=== PATIENT | male | born 1990 | race Two or more races ===

== ENCOUNTER 2018-03-17 20:05 | Emergency (ER) | payer OTHER ==
[~2018-03-17] VITALS: Ht 172.7 cm; Wt 72.6 kg
[2018-03-17 20:10] VITALS: BP 141/73
[2018-03-17] MEDS ORDERED: GUAIFENESIN/D-METHORPHAN HB 5 ML UDC ONE (20:28)
[2018-03-17] MEDS ORDERED: GUAIFENESIN/D-METHORPHAN HB 5 ML UDC PO ONE (20:30)
== END 2018-03-17 21:07 | disposition home or self-care (01) ==
LOC: ER 20:07
DX: J18.8 Other pneumonia, unspecified organism (principal); R94.31 Abnormal electrocardiogram [ECG] [EKG]
CPT/HCPCS: 71045; 93005; 99284; A4606; Z7610

== ENCOUNTER 2019-11-14 14:47 | Emergency (ER) | payer MEDICAID, OTHER ==
[~2019-11-14] VITALS: Ht 172.7 cm; Wt 70.8 kg
[2019-11-14 15:15] VITALS: BP 156/77
[2019-11-14] MEDS ORDERED: IBUPROFEN 400 MG TABLET ONE (15:42)
[2019-11-14] MEDS ORDERED: IBUPROFEN 400 MG TABLET PO ONE (16:00)
== END 2019-11-14 16:45 | disposition home or self-care (01) ==
LOC: ER 14:49
DX: S60.111A Contusion of right thumb with damage to nail, initial encounter (principal); W23.0XXA Caught, crushed, jammed, or pinched between moving objects, initial encounter; Y93.89 Activity, other specified; Y92.89 Other specified places as the place of occurrence of the external cause; Y99.8 Other external cause status
CPT/HCPCS: 11740; 73140; 99285; A6403

== ENCOUNTER 2020-09-09 11:18 | Emergency (ER) | payer MEDICAID, OTHER ==
[~2020-09-09] VITALS: Ht 172.7 cm; Wt 77.1 kg
[2020-09-09 11:24] VITALS: BP 150/95
--- NOTE | 2020-09-09 11:35 | NUR ---
Patient discharged to home in stable condition. Written and verbal after care instructions given. Patient verbalizes understanding of instruction.
== END 2020-09-09 11:35 | disposition home or self-care (01) ==
LOC: ER 11:19
DX: N48.1 Balanitis (principal)

== ENCOUNTER 2021-05-31 11:51 | Emergency (ER) | payer OTHER ==
[~2021-05-31] VITALS: Ht 172.7 cm; Wt 77.1 kg
--- NOTE | 2021-05-31 11:51 | NUR ---
PT BIBRA 89 FROM HOME LSIDED ABDOMINAL PAIN W/ NOTED BLOODY DIARRHEA SINCE YESTERDAY. PT IS AAOX4, NOT IN RESPIRATORY DISTRESS, HOOKED TO PROGRAMMER BUSINESS, KEPT RESTED AND COMFORTABLE. WILL CONTINUE TO MONITOR.
--- NOTE | 2021-05-31 11:56 | NUR ---
SEEN AND EXAMINED BY .
--- NOTE | 2021-05-31 12:00 | NUR ---
IV LINE ESTABLISHED BLOOD DRAWN AND SENT TO LAB.
[2021-05-31 13:05] LABS: BASOPHILS % (AUTO) 0.2 % (0.0-2.0); EOSINOPHILS % (AUTO) 0.2 % (0.0-6.0); HEMATOCRIT 47 % (39-51); HEMOGLOBIN 15.9 g/dL (13.5-17.5); LYMPHOCYTES # (AUTO) 1.3 K/uL (0.8-4.8); LYMPHOCYTES % (AUTO) 29.9 % (20.0-44.0); MEAN CORPUSCULAR HGB CONC 34 g/dl (31.0-36.0); MEAN CORPUSCULAR VOLUME 89 fL (80-96); MONOCYTES # (AUTO) 0.8 K/uL (0.1-1.30); MONOCYTES % (AUTO) 18.4 % (2.0-12.0); NEUTROPHILS # (AUTO) 2.3 K/uL (1.8-8.9); NEUTROPHILS % (AUTO) 51.3 % (43.0-81.0); PLATELET COUNT (AUTO) 163 K/uL (150-450); RED BLOOD CELL COUNT(AUTO) 5.27 MIL/uL (4.5-6.0); WHITE BLOOD COUNT (AUTO) 4.5 K/uL (4.3-11.0)
--- NOTE | 2021-05-31 13:18 | NUR ---
PT IS WHEELED TO CT SCAN VIA WHEELCHAIR.
[2021-05-31 13:27] LABS: ALBUMIN 4.1 g/dL (3.4-5.0); BILIRUBIN,DIRECT 0.1 mg/dL (0.0-0.2); BILIRUBIN,TOTAL 0.4 mg/dL (0.2-1.0); CALCIUM, SERUM 8.7 mg/dL (8.5-10.1); POTASSIUM 3.5 mmol/L (3.5-5.1); TOTAL PROTEIN, SERUM 8.5 g/dL (6.4-8.2)
[2021-05-31] MEDS ORDERED: IOHEXOL-300 100 ML VIAL IV ONE (13:41)
[2021-05-31] MEDS ORDERED: CT SWABBABLE VALVE TRANS SET 1 EA INFUS.SET MC ONE (13:41)
[2021-05-31] MEDS ORDERED: IV NS 0.9% 250 ML IV ONE (13:42)
[2021-05-31] MEDS ORDERED: ONDANSETRON HCL/PF 4 MG/2 ML VIAL ONE (13:47)
[2021-05-31 15:25] VITALS: BP 125/74
--- NOTE | 2021-05-31 15:25 | NUR ---
IV removed. Catheter intact and site benign. Pressure and 4x4 applied to site. No bleeding noted. Patient discharged to home in stable condition. Written and verbal after care instructions given. Patient verbalizes understanding of instruction.
[2021-05-31 15:29] LABS: BAND % (MANUAL) 1 % (0.0-5.0); EOSINOPHILS % (MANUAL) 1 % (0-4); LYMPHOCYTES % (MANUAL) 30 % (16-48); MONOCYTES % (MANUAL) 9 % (0-11.0); NEUTROPHILS % (MANUAL) 59 (42-76)
== END 2021-05-31 15:29 | disposition home or self-care (01) ==
LOC: ER 11:57
DX: U07.1 COVID-19 (principal)
CPT/HCPCS: 36415; 74177; 80048; 80076; 83605; 83690; 85007; 85025; 85730; 99285; J2405; J7050; Q9967